=== PATIENT | female | born 1940 | race Caucasian/White ===

== ENCOUNTER → 2018-02-21 | Outpatient (CLI) | payer MEDICARE, BC ==
[~2018-02-21] MED LIST: ATOR10TA15 PO; IBUP800T23 PO; LORTA5 PO; METO1TAB42 PO; METO25TA6 PO; TRAM50TA PO
--- NOTE | 2018-02-21 13:49 | RADRPT ---
EXAM DATE/TIME: 02/21/2018 13:23 [place] COMPARISON: No previous studies available for comparison. INDICATIONS : Evaluate for pneumonia, pnuemothorax, or other communicable disease. Pre-op left knee surgery. MEDICAL HISTORY : Hypertension. SURGICAL HISTORY : None. ENCOUNTER: Initial ACUITY: 1 day PAIN SCORE: 0/10 LOCATION: Bilateral chest FINDINGS: PA and lateral views of the chest demonstrate the lungs to be symmetrically aerated without evidence of mass, infiltrate or effusion. There are a few linear areas of opacity in the upper left lung sugg esting linear areas of scarring. Calcified left AP window nodes measuring up to 1.3 cm in size. The cardiomediastinal contours are unremarkable. Moderate curvature of the thoracolumbar spine convex t owards the left.. CONCLUSION: 1. No infiltrates seen. 2. Calcified AP window lymph nodes. Scout Sparrow MD on February 21, 2018 at 13:45 Board Certified Radiologist. This report was verified electronically.
[2018-02-21 14:18] LABS: BICARBONATE 27.7 MEQ/L (21.0-32.0); CREATININE 0.76 MG/DL (0.50-1.00)
[2018-02-21 14:22] LABS: BACTERIA, URINE OCC /hpf; BILIRUBIN, URINE NEG (NEG); BLOOD, URINE SMALL (NEG); CALCIUM OXALATE CRYSTALS,URINE OCC /hpf; GLUCOSE,URINE NEG (NEG); KETONE, URINE NEG (NEG); MUCUS URINE FEW /lpf (OCC); NITRITE,URINE POS (NEG); PH, URINE 5.5 (5.0-8.5); SQUAMOUS EPITHELIAL CELL URINE 2 /hpf (0-5); URINE COLOR YELLOW (YELLW/STRAW); URINE LEUKOCYTE ESTERASE SMALL (NEG)
== END ==
LOC: CPRE 12:15
PROVIDERS: ATTEND Orthopaedic Surgery
DX: Z01.812 Encounter for preprocedural laboratory examination (principal); Z01.811 Encounter for preprocedural respiratory examination; S83.232D Complex tear of medial meniscus, current injury, left knee, subsequent encounter; N39.0 Urinary tract infection, site not specified; B96.20 Unspecified Escherichia coli [E. coli] as the cause of diseases classified elsewhere; Z16.11 Resistance to penicillins; Z16.23 Resistance to quinolones and fluoroquinolones
CPT/HCPCS: 36415; 71046; 80048; 81001; 85610; 87077; 87086; 87186

== ENCOUNTER → 2018-03-08 | Day surgery (SDC) | payer MEDICARE, BC ==
--- NOTE | 2018-02-22 12:20 | MH ---
cc: Gerhard Ramirez MD DATE OF ADMISSION: 02/25/2018 ADMITTING DIAGNOSIS: Complex tear, medial meniscus, left knee; osteoarthritis, left knee; pain, left knee; gait disturbance. HISTORY OF PRESENT ILLNESS: The patient is a 77-year-old white female who has experienced pain of her left knee of greater than 4 months' duration. She had noted the abrupt onset of pain about the medial aspect of her left knee unrelated to injury or unusual activity and initially utilized ibuprofen that she did not find to be of any appreciable benefit. She attempted to continue with ambulatory activities, being unaware of any significant swelling but noting an occasional grinding sensation. She presented to the undersigned physician in October of this past year and at that time, her x-ray studies did demonstrate trace narrowing about the medial compartment, suggestive of early degenerative involvement. No acute bony abnormality was noted. 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 She was followed on an outpatient basis thereafter, returning to the office within the past month, reporting that she had remained symptomatic with pain about her left knee that was interfering with all ambulatory activities. She had subsequently undergone MRI scan evaluation of her left knee, the results of which identified osteoarthritic findings with medial compartment osteophytes as well as a complex tear involving the medial meniscus and medial extrusion of the body of the meniscus structure. The patient returned to the office, at which time the findings of the scan were reviewed and treatment options discussed. The pros and cons of continuing with conservative management versus operative intervention involving arthroscopic surgery were outlined. Emphasis was made regarding the fact that the decision to proceed with surgery would be left entirely to the patient's discretion. In addition, it was pointed out that the procedure itself would not serve as a long-term solution to her underlying arthritic condition. The patient considered her options in this regard and subsequently expressed her desire to proceed accordingly given her ongoing pain and associated limitations, and in compliance with her request, she is scheduled for admission at this time in order that the above be accomplished. PAST MEDICAL HISTORY, HOSPITALIZATIONS AND SURGERIES: Have included surgical stabilization of a right ulnar fracture with subsequent removal of fixation hardware. 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 MEDICAL ILLNESSES: Include elevated cholesterol, for which she takes atorvastatin 10 mg daily. Hypertension is treated with metoprolol 20 mg daily. She has also been taking tramadol 50 mg as needed for pain management involving her left knee. ALLERGIES: SHE DESCRIBES A DRUG ALLERGY TO PENICILLIN, WHICH HAS BEEN ASSOCIATED WITH A TIGHTENING THROUGHOUT HER THROAT. CECLOR HAS CAUSED A RASH AND ITCHING SENSATION. REVIEW OF SYSTEMS: History of sinus headaches. No seizure or syncope. Occasional sinus congestion. No epistaxis. Auditory acuity intact. Occasional tinnitus. No bleeding gums or dysphagia. Denies cough, shortness of breath or tuberculosis. There is a positive history of pneumonia. No angina or heart disease. Her appetite is good. Bowel movements are regular. No hepatitis, gallbladder disease, ulcers or hemorrhoids. There is a history of urinary tract infection, no kidney stones. Fracture of the left clavicle. No psychiatric illness. The remaining review of systems is unremarkable and noncontributory. FAMILY HISTORY: The patient has been 32 years, this being a second marriage. is 71 years of age, in good health. One son and 2 daughters, one daughter with a history of chronic low back pain, having undergone previous pain management disposition with insertion of a nerve stimulator. Family history is otherwise positive for hypertension, heart disease, stroke, and Parkinson disease. SOCIAL HISTORY: The patient completed 2 years of college education. She is a housewife. She denies active use of tobacco for at least 25 years, but had been less than 1 pack per day user for approximately 8 years prior to that time. Ethanol consumption on a very limited and rare basis. PHYSICAL EXAMINATION: VITAL SIGNS: Height 5 feet 1-1/2 inches, weight 165 pounds. GENERAL: An alert, oriented and responsive 77-year-old white female who sits quietly upon the examination table with no obvious distress. HEAD, EARS, EYES, NOSE, AND THROAT: Pupils are equally round and reactive to light. Extraocular movements full. Sclerae clear. External nares clear. External auditory canals clear. Dental intact. Mucous membranes pink and moist. Pharynx clear. NECK: Supple. Active range of motion with slight discomfort at the extremes of mobility indicated to be chronic in nature. Carotid pulse palpable bilaterally. Trachea midline. Thyroid without thyroid enlargement. LUNGS: Clear to auscultation and percussion. BACK: No CVA tenderness. No discomfort throughout the dorsolumbar spine. HEART: Regular rhythm. No murmur or gallop. ABDOMEN: Soft, nontender, bowel sounds present. PELVIC: Per primary care physician. EXTREMITIES: Left knee: No obvious swelling or effusion, medial joint line tenderness without palpable deformity. Apprehension and compression sign negative. Limited mobility in the 90-degree range of flexion with pain associated. No significant crepitation. No collateral ligamentous laxity. Romie test and drawer sign negative. Pivot shift and Azul sign positive for medial compartment pain. Straight leg raising unremarkable at 80 degrees. Antalgic gait with cane support. NEUROLOGIC: Cranial nerves 2 through 12 grossly intact. IMPRESSION: Complex tear, medial meniscus, left knee; osteoarthritis, left knee; pain, left knee; gait disturbance. PLAN: Arthroscopic surgery, left knee, possible arthrotomy. The nature of the planned surgical procedure, the potential complications and risks associated, the expectations of surgery and the consent form were thoroughly reviewed with the patient prior to her admission to the hospital. Josy has indicated her full understanding regarding all of the above and given consent to proceed with treatment as outlined. Medical evaluation and clearance for surgery will be completed by her primary care physician, Dr. Tr Sosa, cardiology clearance per Dr. Soriano. Gerhard Ramirez MD NBS/SB , 11:53 AM , 12:20 PM
[~2018-03-08] VITALS: Ht 154.9 cm; Wt 75.2 kg
[~2018-03-08] MED LIST changes: +*MEPERIDINE 25 MG INJ VIAL PERIprocedural Use ONLY ONE; +*RESP: ALBUTEROL 2.5 MG/3 ML NEB (PRN) PERIprocedural Use ONLY NEB ONE; +*morphine SULFATE 4 MG/ML PERIprocedure ONLY ONE; +ACETAMINOPHEN/HYDROcodone 325 MG/5 MG TAB PO PRN; +CHLORHEXIDINE GLUCONATE 2 % 1 PACK (2 CLOTHS) TOPICAL PRN; +CLINDAMYCIN 600 MG/NS PREMIX 50 ML IV SCH; +CLINDAMYCIN INJ 600 MG in SODIUM CHLORIDE 0.9% INJ 100 ML IV SCH; +CLINDAMYCIN PHOS 600 MG/4 ML VIAL ONE; +DO NOT ADM ANY ANTICOAGULANT DRUGS PRN; -IBUP800T23 PO; +INSULIN HUMAN REGULAR 1,000 UNITS/10 ML VIAL SQ PRN; +KETOROLAC TROMETHAMINE 30 MG/ML (IVP) VIAL IV PUSH ONE; +LACTATED RINGER'S 1000 ML IV PRN; +LIDOCAINE HCL 1% PF 5 ML SYRINGE OTHER ONE; +LIDOCAINE HCL 2% PF 10 ML VIAL ONE; -LORTA5 PO; -METO25TA6 PO; +METOPROLOL TARTRATE 25 MG TAB PO PRN; +MIDAZOLAM HCL 2 MG/2 ML VIAL ONE; +MORPHINE SULFATE 8 MG/ML INJ IM PRN; +ONDANSETRON HCL 4 MG/2 ML VIAL IV ONE; +POVIDONE IODINE 5% (ANTISEPSIS KIT) 4 APPLICATIONS EACH NARE PRN; +POVIDONE IODINE 7.5% SCRUB 118 ML BOTTLE TOPICAL SCH; +PROMETHAZINE INJ 25 MG/ML VIAL IM PRN; +PROPOFOL 200 MG/20 ML AMP IV ONE; +SODIUM CHLORID 0.9% 500 ML IV PRN; +SODIUM CHLORIDE 0.9% INJ 100 ML ONE; +TRIAMCINOLONE ACETONIDE/PF 40 MG/ML OPTH VIAL ONE
--- NOTE | 2018-03-08 13:45 | MP ---
cc: Gerhard Ramirez MD DATE OF OPERATION: 03/08/2018 PREOPERATIVE DIAGNOSIS: Complex tear, medial meniscus, left knee; osteoarthritis, left knee; pain, left knee; gait disturbance. POSTOPERATIVE DIAGNOSIS: Complex tear, medial meniscus, left knee; osteoarthritis, left knee; pain, left knee; gait disturbance including synovial plica, left knee. PROCEDURE PERFORMED: Partial medial meniscectomy, left knee; chondroplasty, medial tibiofemoral compartment and resection of synovial plica. SURGEON: Gerhard Ramirez MD ANESTHESIA: General by LMA. DESCRIPTION OF PROCEDURE: Following induction of satisfactory general anesthesia by LMA insertion as completed per the Department of Anesthesia, examination of the left knee did reveal a satisfactory range of motion with no appreciable ligamentous instability. The extremity proper was positioned into the glass ribbon machine operator assistant knee lal, prepped with Betadine solution and draped into a sterile field in the routine manner. Prior to initiation of the actual procedure, the standard timeout protocol was completed. All parameters were appropriately addressed and confirmed by operating room personnel. Arthroscopic instrumentation was introduced through a stab wound utilizing cannula with sharp and blunt trocar, the inflow irrigation by way of a medial suprapatellar portal, the arthroscope through a lateral parapatellar portal and a probe through a medial parapatellar portal. Examination of the suprapatellar pouch revealed a prominent synovial plica extending across the superior aspect of the suprapatellar region. Mild degenerative change was noted throughout the patellofemoral joint. Within the medial compartment, a complex tear involving the posterior horn of the medial meniscus was identified. There were associated degenerative changes throughout the medial compartment. The anterior cruciate ligament was identified and noted to be intact. Examination of the lateral compartment was essentially unremarkable with uniformity of articular surfaces and lateral meniscus. Attention was returned to the medial compartment. Utilizing a 3.8 mm shaver resector through the medial portal, a partial medial meniscectomy was accomplished as well as a chondroplasty of the medial compartment, especially involving the femoral condyle. The shaver was thereafter oriented to the suprapatellar region where the previously identified synovial plica was resected in a subtotal fashion. Upon completion of same, the joint space was thoroughly lavaged and suctioned dry. An intra-articular Kenalog/lidocaine injection was completed. Portal sites were reapproximated with Steri-Strips, over which Xeroform gauze and a bulky dry sterile dressing were placed. Anesthesia was discontinued and the patient thus transferred to a hospital stretcher and returned to the recovery room in satisfactory condition, having tolerated her operative procedure well ESTIMATED BLOOD LOSS: Approximately 10 mL. MD ANDIE Jimenez/SB , 01:29 PM , 01:44 PM
[2018-03-08 16:30] VITALS: BP 138/53; PULSE 60; RESP 16; TEMP 97.5; O2SAT 100
== END | disposition home or self-care (01) ==
LOC: HSDC 10:21
PROVIDERS: ATTEND Orthopaedic Surgery
DX: M23.222 Derangement of posterior horn of medial meniscus due to old tear or injury, left knee (principal); M17.12 Unilateral primary osteoarthritis, left knee; M67.52 Plica syndrome, left knee; R26.9 Unspecified abnormalities of gait and mobility; I10 Essential (primary) hypertension; E78.00 Pure hypercholesterolemia, unspecified; Z87.440 Personal history of urinary (tract) infections; Z87.891 Personal history of nicotine dependence
CPT/HCPCS: 01400; 29881; 86850; 86900; 86901; J1885; J2175; J2250; J2270; J2405; J3010; J3300; J7120; J7613